=== PATIENT | female | born 1970 | race Caucasian/White ===

== ENCOUNTER 2021-09-03 22:42 | Emergency (ER) | payer BC ==
[2021-09-03] MEDS ORDERED: Morphine 4 MG/ML VIAL ONE (23:37)
[2021-09-03] MEDS ORDERED: Morphine 2 MG/ML VIAL ONE (23:37)
[2021-09-03] MEDS ORDERED: Dexamethasone 10 MG/ML VIAL ONE (23:37)
== END 2021-09-04 00:35 | disposition home or self-care (01) ==
LOC: MADERS 22:42
DX: S80.861A Insect bite (nonvenomous), right lower leg, initial encounter (principal); E03.9 Hypothyroidism, unspecified; W57.XXXA Bitten or stung by nonvenomous insect and other nonvenomous arthropods, initial encounter
CPT/HCPCS: 96372; 99283; J1100; J2270